=== PATIENT | female | born 1950 | race Two or more races ===

== ENCOUNTER 2021-01-15 08:03 | Outpatient (CLI) | payer OTHER ==
[~2021-01-15 08:03] MED LIST: ABILIFY2 MG PO; CEFADROXIL500 MG PO; CLARINEX2.5 MG/5 M PO; CLONAZEPAM1 MG PO; DIOVAN320 MG PO; DULERA 100 MCG/13 GM NASAL; HYDROCHLOROTH12.5 M1 PO; HYDROCHLOROTHIA25 GM MC; PERCOCET 5/321 UDTAB PO; SINGULAIR10 MG PO; SYNTHROID88 MCG PO; WELLBUTRIN75 MG PO; XARELTO10 MG PO
== END 2021-01-15 08:16 | disposition home or self-care (01) ==
LOC: RX STUDY 08:03
PROVIDERS: ATTEND Otolaryngology Plastic Surgery within the Head & Neck
DX: R13.19 Other dysphagia (principal)

== ENCOUNTER 2021-04-29 07:07 | Day surgery (SDC) | payer OTHER | END 2021-04-29 12:35 | disposition home or self-care (01) | LOC: AMB-ENDOS 07:07 | PROVIDERS: ATTEND Colon & Rectal Surgery | DX: D12.2 Benign neoplasm of ascending colon (principal); D12.3 Benign neoplasm of transverse colon; K64.8 Other hemorrhoids; Z12.11 Encounter for screening for malignant neoplasm of colon ==